=== PATIENT | male | born 1980 | race Caucasian/White ===

== ENCOUNTER 2019-09-23 15:16 | Inpatient (IN) | payer BC ==
[~2019-09-23] VITALS: Ht 180.3 cm; Wt 83.9 kg
[2019-09-23 16:05] VITALS: BP 121/68
[2019-09-23] MEDS ORDERED: ALBUTEROL SULFATE HFA 90 MCG/PUFF 8 GM INHALER IH PRN (17:30)
[2019-09-23] MEDS ORDERED: ACETAMINOPHEN 325 MG TABLET PO PRN (17:30)
[2019-09-23] MEDS ORDERED: MELATONIN 5 MG TABLET PO PRN (17:30)
[2019-09-23] MEDS ORDERED: OxyCODONE HCL 5 MG IR TABLET PO PRN (17:30)
[2019-09-23] MEDS ORDERED: OxyCODONE HCL 10 MG IR TABLET PO PRN (17:30)
[2019-09-23] MEDS: HEPARIN SODIUM,PORCINE 5,000 UNITS/ML VIAL SQ SCH (21:47)
[2019-09-23] MEDS: DOCUSATE SODIUM 100 MG CAPSULE PO SCH (21:47)
[2019-09-23] MEDS: SENNA 187 MG TABLET PO SCH (21:47)
[2019-09-23 22:33] VITALS: BP 121/68
[2019-09-23] MEDS: AMANTADINE HCL 50 MG/5 ML SYRUP ORAL.SYG PO SCH (22:57)
[2019-09-24 01:15] VITALS: BP 109/68
[2019-09-24 06:56] LABS: BASOPHILS % (AUTO) 0.8 % (0.0-2.0); EOSINOPHILS % (AUTO) 2.8 % (1.0-6.0); HEMATOCRIT 44.3 % (41-53); HEMOGLOBIN 15.2 g/dL (13.5-17.5); LYMPHOCYTES # (AUTO) 1.9 K/uL (1.0-4.8); LYMPHOCYTES % (AUTO) 30.7 % (22.0-44.0); MEAN CORPUSCULAR HEMOGLOBIN 30.3 pg (26.0-34.0); MEAN CORPUSCULAR HGB CONC 34.4 G/dL (31.0-37.0); MEAN CORPUSCULAR VOLUME 88 fL (80-100); MONOCYTES # (AUTO) 0.4 K/uL (0.1-1.0); MONOCYTES % (AUTO) 7.1 % (2.0-9.0); NEUTROPHILS # (AUTO) 3.6 K/uL (1.8-7.7); NEUTROPHILS % (AUTO) 58.6 % (40.0-70.0); PLATELET COUNT (AUTO) 238 K/uL (150-450); RED BLOOD CELL COUNT(AUTO) 5.02 MIL/uL (4.50-5.90); RED CELL DISTRIBUTION WIDTH 14.3 % (11.5-14.5)
[2019-09-24 07:03] LABS: ALBUMIN 3.7 g/dL (3.4-5.0); BILIRUBIN,TOTAL 2.1 mg/dL (0.1-1.0); CALCIUM, TOTAL 9.3 mg/dL (8.8-10.5); CREATININE 1.35 mg/dL (0.60-1.30); POTASSIUM 4.1 mmol/L (3.5-5.1); TOTAL PROTEIN, SERUM 7.5 g/dL (6.4-8.2)
[2019-09-24 07:15] VITALS: BP 119/76
[2019-09-24] MEDS: DOCUSATE SODIUM 100 MG CAPSULE PO SCH ×2 (08:32→21:27)
[2019-09-24] MEDS: POTASSIUM CHLORIDE 20 MEQ ER TABLET PO SCH (08:32)
[2019-09-24] MEDS: HEPARIN SODIUM,PORCINE 5,000 UNITS/ML VIAL SQ SCH ×3 (08:33→21:27)
[2019-09-24] MEDS: AMANTADINE HCL 50 MG/5 ML SYRUP ORAL.SYG PO SCH ×2 (08:33→21:28)
[2019-09-24 16:09] VITALS: BP 121/86
[2019-09-24] MEDS: SENNA 187 MG TABLET PO SCH (21:28)
[2019-09-25 05:03] VITALS: BP 110/74
[2019-09-25 09:00] VITALS: BP 128/91
[2019-09-25] MEDS: DOCUSATE SODIUM 100 MG CAPSULE PO SCH ×2 (09:19→20:50)
[2019-09-25] MEDS: HEPARIN SODIUM,PORCINE 5,000 UNITS/ML VIAL SQ SCH ×3 (09:19→20:50)
[2019-09-25] MEDS: POTASSIUM CHLORIDE 20 MEQ ER TABLET PO SCH (09:19)
[2019-09-25] MEDS: AMANTADINE HCL 50 MG/5 ML SYRUP ORAL.SYG PO SCH ×2 (09:20→20:52)
[2019-09-25 17:20] VITALS: BP 116/84
[2019-09-25] MEDS: SENNA 187 MG TABLET PO SCH (20:50)
[2019-09-26] VITALS: BP 114/69
[2019-09-26 07:16] LABS: CALCIUM, TOTAL 9.5 mg/dL (8.8-10.5); CREATININE 1.37 mg/dL (0.60-1.30); POTASSIUM 3.7 mmol/L (3.5-5.1)
[2019-09-26 07:54] VITALS: BP 120/80
[2019-09-26] MEDS: DOCUSATE SODIUM 100 MG CAPSULE PO SCH ×2 (08:32→20:31)
[2019-09-26] MEDS: MULTIVITAMINS WITH MINERALS, THERAPEUTIC TABLET PO SCH (08:33)
[2019-09-26] MEDS: POTASSIUM CHLORIDE 20 MEQ ER TABLET PO SCH (08:33)
[2019-09-26] MEDS: HEPARIN SODIUM,PORCINE 5,000 UNITS/ML VIAL SQ SCH ×3 (08:34→20:32)
[2019-09-26] MEDS: AMANTADINE HCL 50 MG/5 ML SYRUP ORAL.SYG PO SCH ×2 (08:34→20:32)
[2019-09-26 14:15] LABS: GLUCOMETER DEV NAME(LOC) 2WR.2B; GLUCOSE,POINT OF CARE 104 MG/DL (70-110)
[2019-09-26 16:56] LABS: APPEARANCE,URINE CLEAR (CLEAR); BILIRUBIN,URINE NEGATIVE (NEGATIVE); GLUCOSE, URINE (UA) NEGATIVE (NEGATIVE); KETONES,URINE TRACE mg/dL (NEGATIVE); LEUKOCYTE ESTERASE ,URINE NEGATIVE (NEGATIVE); NITRATE,URINE NEGATIVE (NEGATIVE); OCCULT BLOOD,URINE NEGATIVE (NEGATIVE); PROTEIN,URINE NEGATIVE (NEGATIVE); UROBILINOGEN,URINE 0.2 mg/dL (<=1.0)
[2019-09-26 17:04] LABS: BACTERIA,URINE None Seen /HPF (None Seen); RBC,URINE None Seen /HPF (0-2); WBC,URINE None Seen /HPF (0-5)
[2019-09-26 17:10] LABS: CREATININE,URINE RANDOM 258.7 mg/dL (30.0-125.0); PROTEIN,URINE RANDOM 15 mg/dL (0-11.9); SODIUM,URINE RANDOM 89 mmol/l (20-110)
[2019-09-26 18:40] VITALS: BP 110/76
[2019-09-26] MEDS: SENNA 187 MG TABLET PO SCH (20:32)
[2019-09-27] VITALS: BP 127/78
[2019-09-27 08:00] VITALS: BP 110/68
[2019-09-27] MEDS: DOCUSATE SODIUM 100 MG CAPSULE PO SCH ×2 (08:06→21:13)
[2019-09-27] MEDS: POTASSIUM CHLORIDE 20 MEQ ER TABLET PO SCH (08:06)
[2019-09-27] MEDS: AMANTADINE HCL 50 MG/5 ML SYRUP ORAL.SYG PO SCH ×2 (08:06→21:13)
[2019-09-27] MEDS: MULTIVITAMINS WITH MINERALS, THERAPEUTIC TABLET PO SCH (08:06)
[2019-09-27] MEDS: HEPARIN SODIUM,PORCINE 5,000 UNITS/ML VIAL SQ SCH ×3 (08:07→21:14)
[2019-09-27 16:00] VITALS: BP 103/73
[2019-09-27] MEDS: SENNA 187 MG TABLET PO SCH (21:13)
[2019-09-28 00:30] VITALS: BP 115/80
[2019-09-28 07:50] VITALS: BP 104/75
[2019-09-28] MEDS: MULTIVITAMINS WITH MINERALS, THERAPEUTIC TABLET PO SCH (08:52)
[2019-09-28] MEDS: HEPARIN SODIUM,PORCINE 5,000 UNITS/ML VIAL SQ SCH ×3 (08:52→21:34)
[2019-09-28] MEDS: POTASSIUM CHLORIDE 20 MEQ ER TABLET PO SCH (08:53)
[2019-09-28] MEDS: DOCUSATE SODIUM 100 MG CAPSULE PO SCH ×2 (08:53→21:34)
[2019-09-28] MEDS: AMANTADINE HCL 50 MG/5 ML SYRUP ORAL.SYG PO SCH ×2 (08:53→21:34)
[2019-09-28 16:23] VITALS: BP 111/70
[2019-09-28] MEDS: SENNA 187 MG TABLET PO SCH (21:34)
[2019-09-28 23:10] VITALS: BP 121/62
[2019-09-29 07:09] LABS: ANION GAP 6 mmol/L (8-16); CALCIUM, TOTAL 9.4 mg/dL (8.8-10.5); CARBON DIOXIDE 30 mmol/L (22-29); CHLORIDE 104 mmol/L (98-107); CREATININE 1.11 mg/dL (0.60-1.30); GLOMERULAR FILTR. RATE CALC > 60 mL/min (>60); GLUCOSE,RANDOM 97 mg/dL (70-110); POTASSIUM 4.3 mmol/L (3.5-5.1); SODIUM SERUM 140 mmol/L (136-145); UREA NITROGEN, BLOOD 10 mg/dL (7-18)
[2019-09-29 08:45] VITALS: BP 131/62
[2019-09-29] MEDS: DOCUSATE SODIUM 100 MG CAPSULE PO SCH ×2 (09:07→20:49)
[2019-09-29] MEDS: HEPARIN SODIUM,PORCINE 5,000 UNITS/ML VIAL SQ SCH (09:07)
[2019-09-29] MEDS: POTASSIUM CHLORIDE 20 MEQ ER TABLET PO SCH (09:08)
[2019-09-29] MEDS: MULTIVITAMINS WITH MINERALS, THERAPEUTIC TABLET PO SCH (09:08)
[2019-09-29] MEDS: AMANTADINE HCL 50 MG/5 ML SYRUP ORAL.SYG PO SCH ×2 (09:10→20:49)
[2019-09-29 13:11] LABS: CREATININE,URINE 121.4 mg/dL (30.0-125.0)
[2019-09-29 13:15] LABS: CREATININE,SERUM FOR CRCL 1.11 mg/dL (0.60-1.30)
[2019-09-29 15:47] VITALS: BP 105/72
[2019-09-29] MEDS: SENNA 187 MG TABLET PO SCH (20:48)
[2019-09-30 00:15] VITALS: BP 112/74
[2019-09-30] MEDS: POTASSIUM CHLORIDE 20 MEQ ER TABLET PO SCH (08:21)
[2019-09-30] MEDS: AMANTADINE HCL 50 MG/5 ML SYRUP ORAL.SYG PO SCH ×2 (08:21→20:17)
[2019-09-30] MEDS: MULTIVITAMINS WITH MINERALS, THERAPEUTIC TABLET PO SCH (08:21)
[2019-09-30] MEDS: DOCUSATE SODIUM 100 MG CAPSULE PO SCH ×2 (08:21→20:17)
[2019-09-30 10:30] VITALS: BP 113/79
[2019-09-30 15:22] VITALS: BP 116/81
[2019-09-30] MEDS ORDERED: AMAN-6 PO (19:40)
[2019-09-30] MEDS ORDERED: MULT-1119 PO (19:40)
[2019-09-30] MEDS ORDERED: POTA20TA83 PO (19:40)
[2019-09-30] MEDS: SENNA 187 MG TABLET PO SCH (20:17)
[2019-09-30 23:19] VITALS: BP 106/65
[2019-10-01 07:45] VITALS: BP 118/77
[2019-10-01] MEDS: MULTIVITAMINS WITH MINERALS, THERAPEUTIC TABLET PO SCH (08:46)
[2019-10-01] MEDS: POTASSIUM CHLORIDE 20 MEQ ER TABLET PO SCH (08:46)
[2019-10-01] MEDS: AMANTADINE HCL 50 MG/5 ML SYRUP ORAL.SYG PO SCH (08:47)
[2019-10-01] MEDS: DOCUSATE SODIUM 100 MG CAPSULE PO SCH (08:47)
== END 2019-10-01 09:45 | disposition home or self-care (01) | DRG 964 ==
LOC: EDSEX → EDBD → 2WR 15:55
PROVIDERS: ADMIT Physical Medicine & Rehabilitation; ATTEND Physical Medicine & Rehabilitation
DX: S06.2X9A Diffuse traumatic brain injury with loss of consciousness of unspecified duration, initial encounter (principal); S72.001A Fracture of unspecified part of neck of right femur, initial encounter for closed fracture; S12.500A Unspecified displaced fracture of sixth cervical vertebra, initial encounter for closed fracture; G81.90 Hemiplegia, unspecified affecting unspecified side; J95.851 Ventilator associated pneumonia; N18.3 Chronic kidney disease, stage 3 (moderate); R32 Unspecified urinary incontinence; S52.121A Displaced fracture of head of right radius, initial encounter for closed fracture; Z20.828 Contact with and (suspected) exposure to other viral communicable diseases; S02.85XA Fracture of orbit, unspecified, initial encounter for closed fracture; S02.401A Maxillary fracture, unspecified side, initial encounter for closed fracture; S01.511A Laceration without foreign body of lip, initial encounter; I12.9 Hypertensive chronic kidney disease with stage 1 through stage 4 chronic kidney disease, or unspecified chronic kidney disease; R41.841 Cognitive communication deficit; R41.844 Frontal lobe and executive function deficit; V19.9XXA Pedal cyclist (driver) (passenger) injured in unspecified traffic accident, initial encounter; Y93.55 Activity, bike riding
CPT/HCPCS: 72040; 76770; 82570; 82575; 84156; 84300; 84540; 87081; 92507; 92508; 92523; 97110; 97112; 97116; 97150; 97163; 97166; 97530; 97535; 99366; J1644